=== PATIENT | female | born 1990 | race Native Hawaiian/Other Pacific Islander ===

== ENCOUNTER 2020-12-31 14:07 | Outpatient (CLI) | payer BC | END 2020-12-31 19:38 | disposition home or self-care (01) | LOC: US 14:07 | PROVIDERS: ATTEND Physician Assistant | DX: F41.9 Anxiety disorder, unspecified (principal); R22.1 Localized swelling, mass and lump, neck; E07.9 Disorder of thyroid, unspecified; J02.9 Acute pharyngitis, unspecified ==

== ENCOUNTER 2021-03-08 09:32 | Outpatient (CLI) | payer OTHER | END 2021-03-08 21:08 | disposition home or self-care (01) | LOC: RESP 09:32 | PROVIDERS: ATTEND Nurse Practitioner Family | DX: R00.2 Palpitations (principal) | CPT/HCPCS: 93225 ==

== ENCOUNTER 2021-03-24 12:57 | Outpatient (CLI) | payer OTHER | END 2021-03-24 20:36 | disposition home or self-care (01) | LOC: RESP 12:57 | PROVIDERS: ATTEND Nurse Practitioner Family | DX: R00.2 Palpitations (principal) ==

== ENCOUNTER 2022-09-14 10:58 | Outpatient (CLI) | payer OTHER | END 2022-09-14 19:14 | disposition home or self-care (01) | LOC: RAD 10:58 | PROVIDERS: ATTEND Nurse Practitioner Family | DX: R06.09 Other forms of dyspnea (principal) ==

== ENCOUNTER 2023-03-12 09:28 | Outpatient (CLI) | payer OTHER | END 2023-03-12 21:10 | disposition home or self-care (01) | LOC: RAD 09:28 | PROVIDERS: ATTEND Physician Assistant | DX: M25.511 Pain in right shoulder (principal) ==